=== PATIENT | female | born 1980 | race Hispanic/Latino ===

== ENCOUNTER 2017-05-21 09:28 | Outpatient (CLI) | payer OTHER ==
--- NOTE | 2017-05-21 10:35 | XRay Report ---
LUMBAR SPINE THREE VIEWS: 05/21/17 09:28:00 CLINICAL: Low back pain. FINDINGS: Normal vertebral body height, alignment and disk spaces. Very mild degenerative change with small anterior osteophytes from L1-L5. The disc spaces are normal. Facet joint sclerosis at L4-5 and L5-S1. Pedicles are intact. No fracture. Normal soft tissues. IMPRESSION: Mild degenerative change.
== END 2017-05-21 09:29 | disposition home or self-care (01) ==
LOC: SPVIMAG 09:28
PROVIDERS: ATTEND Family Medicine
DX: M47.897 Other spondylosis, lumbosacral region (principal); M25.78 Osteophyte, vertebrae
CPT/HCPCS: 72100

== ENCOUNTER 2019-06-19 09:00 | Outpatient (CLI) | payer OTHER ==
--- NOTE | 2019-06-19 13:27 | Ultrasound Report ---
TRANSABDOMINAL PELVIC AND TRANSVAGINAL ULTRASOUND HISTORY: AMENORRHEA COMPARISON: None. TECHNIQUE: Routine transabdominal and transvaginal pelvic ultrasound performed. FINDINGS: TRANSABDOMINAL PELVIC ULTRASOUND: Uterus: Normal size with a heterogeneous myometrium. No masses. Uterus measures 9.0 x 5.2 x 5.4 cm . Endometrium: Normal thickness measuring 6 mm. Right Ovary: Not seen Left Ovary: Not seen. Additional findings: Transvaginal exam was performed for better delineation of the endometrium and ov nuha. TRANSVAGINAL PELVIC ULTRASOUND: Uterus: Retroflexed with a bulky heterogeneous myometrium. No uterine fibroid or mass identified. Endometrium: Normal and 11 mm AP thickness. Right Ovary: Numerous small follicles. 4.0 x 1.9 x 3.4 cm. Left Ovary: Numerous small follicles. 4.0 x 1.5 x 2.9 cm. Additional findings: No free fluid. IMPRESSION: 1. Changes in the uterus suggestive of adenomyosis. 2. No uterine fibroid or mass. 3. The appearance of the ovaries is consistent with PCOS. Signer Name: Christoph Patel MD Signed: 06/19/2019 1:22 PM Workstation Name: [id number]
== END 2019-06-19 09:01 | disposition home or self-care (01) ==
LOC: SPVWC 09:00
PROVIDERS: ATTEND Family Medicine
DX: N91.2 Amenorrhea, unspecified (principal)
CPT/HCPCS: 76830; 76856